=== PATIENT | female | born 1995 | race Caucasian/White ===

== ENCOUNTER 2025-03-29 07:41 | Inpatient (IN) ==
[2025-03-29] MEDS ORDERED: LIDOCAINE 1% LOCAL 20 ML VIAL INFIL PRN (09:25)
--- NOTE | 2025-03-29 09:37 | History & Physical Report ---
Date of Service March 29, 2025 Assessment & Plan (1) Encounter for induction of labor: Plan: Pt is a 29yo at 40w 0d with hx of Pacemaker presenting for induction of labor Routine labs ordered Pitocin ordered Epidural placement on demand Monitor tracing Expectant management for labor, anticipate GBS +, penicillin ordered Admission and Anticipated Discharge Date Admission Date: March 29, 2025 History of Present Illness Chief Complaint: IOL Primary Care Provider: Fifi Cano Pt is a 29yo female currently at 40w 0d with an BANDAR 03/29/25 who is here for induction of labor. Adequate movement; not feeling contractions, no fluid loss; no bloody show PMH: Pacemaker placement 07/2021 AV heart block-sees [facility]ology Concerned about laboring and seizures due to high heart rates Hx ectopic -ruptured tube with removal of Left Had regular appointments with OB. OB Labs: Blood Type O Positive 08/31/24 Antibody Screen NEGATIVE 08/31/24 Hgb 12.3 g/dl (12.0-16.0) 03/12/25 Hct 35.8 % (37.0-47.0) L 03/12/25 MCV 95.2 fL (80.0-100.0) 03/12/25 Plt Count 235 K/uL (130-400) 03/12/25 Rubella IgG Antibody Immune (Immune) 08/31/24 Treponema pallidum Ab Negative (Negative) 01/10/25 Hep Bs Antigen Negative (Negative) 08/31/24 Hepatitis C Antibody Negative (Negative) 08/31/24 HIV 1&2 Ab/P24 Ag 4thGn Negative (Negative) 08/31/24 Glucose 1 Hr 50 gm 108 mg/dl (70-130) 01/10/25 Chlamydia trachomatis RNA Not Detected (NotDetected) 08/31/24 Neisseria gonorrhoeae RNA Not Detected (NotDetected) 08/31/24 Thyroid Stimulating Hormone (TSH) 2.262 uIu/ml (0.300-4.500) 03/12/25 Panorama: Low risk Horizon: Negative Review of Systems : Denies fever, chills, headache, vision changes, shortness of breath, difficulty breathing, chest pain, palpitations, RUQ/epigastric pain, dysuria Allergies Allergy/AdvReac Type Severity Reaction Status Date / Time povidone-iodine Allergy Swelling, Verified 03/28/25 16:24 [From Betadine] rash Home Medications Medication Instructions Recorded Confirmed Type cetirizine 10 mg capsule (Zyrtec) 10 mg PO BID 03/29/25 03/29/25 History famotidine 20 mg tablet (Pepcid) 20 mg PO BID 03/29/25 03/29/25 History vits no.124-ferrous fum 1 tab PO DAILY 03/29/25 03/29/25 History 27 mg iron-folic acid 800 mcg tablet ( Vitamin) Patient History Medical History Chronic urticaria [facility] ER visit, treated with pepcid/benadryl/medrol dosepak Endometriosis Fibromyalgia History of seizure Single seizure, post-op meniscus surgery (2009) No seizure/issues since Intermittent complete heart block Migraine Pacemaker Implanted 2021, Medtronic, Hx intermittent CHB Follows with [facility] EP Perivascular dermatitis Surgical History H/O unilateral salpingectomy left H/O wisdom tooth extraction S/P cardiac pacemaker procedure Implanted 2021 Status post lateral meniscus repair Right Family History Grandfather (Maternal) Diabetes Grandmother (Maternal) Ovarian cancer Aunt Breast cancer Great maternal aunt Denies family history of Colorectal cancer Social History Smoking Status: Never smoker Do You Dip or Chew Tobacco: No; Hx Alcohol Use: No Hx Substance Use: No Preferred Language: [place] Communication Ability: Effective Dancer Or Choreographer Required: No Beliefs That Will Affect Care: None marital status: marital status details: Pavel Victoria (30) [phone] Current Living Situation: Spouse Current Living Situation Comment: lives with spouse, dogs current occupational status: employed current occupation: [email or web address] worker Other Information That Helps Us Care for You: No Feels Safe at Home: Yes Safety Concerns: Feels Safe At This Time Assistive Devices: None Physical Exam Physical Exam: General: patient resting comfortably, NAD, non-toxic in appearance, AAOx4, answers questions appropriately. Skin: warm, dry, intact HEENT: NC/AT, anicteric sclera, conjunctiva without injection Heart: S1/S2 heard, regular, no m/r/g Lungs: equal air entry bilaterally, no rales/rhonchi/wheezes Abd: Normoactive BS, soft, NT/ND, gravid uterus Ext: warm, no clubbing/cyanosis or edema Neuro: nonfocal, speech intact, no facial droop, moving all extremities on c ommand : FHR baseline 130, moderate variability, accelerations present, decelerations absent, no contractions. Category 1 tracing. Results & Data Vital Signs (Past 12 Hours) Vital Signs Temp Pulse Resp BP 03/29/25 08:04 83 119/76 03/29/25 08:00 36.9 C 16 03/29/25 07:53 16 03/29/25 07:53 36.9 C 16 Supervising Physician Co-Signing Physician Notes Resident Physician Supervision Note: I interviewed and examined the patient. Discussed with Dr. Laura and agree with findings and plan as documented in the note. Any exceptions or clarifications are listed here: 29yo who presents at 40w0d for scheduled induction of labor, cervix 1/70/-2. Johnson balloon placed with 35cc fluid - pt tolerated well. FHT reassuring, cxn rare. Will start pitocin 2x2. Epidural PRN. GBS pos- penicillin ordered. RI, Rh pos. Documented By: Bessie Anne MD Resident Activity Tracking Resident Involvement: Resident Care Provided Care Provided: OB Delivery
[2025-03-29 09:54] LABS: Hematocrit (blood only) 34.4 % (37.0-47.0); Hemoglobin 11.9 g/dl (12.0-16.0); Mean Corpuscular Hemoglobin 33.1 pg (25.0-34.0); Mean Corpuscular Volume 95.6 fL (80.0-100.0); Platelet Count 197 K/uL (130-400); RDW Standard Deviation 46.5 fL (36.4-46.3); Red Blood Count 3.60 M/uL (4.20-5.40); White Blood Count 9.22 K/ul (4.8-10.8)
[2025-03-29] MEDS: LACTATED RINGER'S 1,000 ML IV PRN (09:59)
[2025-03-29] MEDS: PENICILLIN GK 6 MU in DEXTROSE 5% 250 ML IV STA (10:04)
[2025-03-29] MEDS: OXYTOCIN 30 UNITS/NSS 30 UNITS/500 ML BAG IV PRN (10:10)
--- NOTE | 2025-03-29 13:10 | Labor Progress Brief Note ---
Date of Service March 29, 2025 Subjective Reason For Note: Routine Evaluation and Requested By RN Feeling a little uncomfortable with jarvis balloon but overall managing well. RN reports heart rate higher up on patient's abdomen so wanted to confirm position. Review of Systems All systems reviewed & are unremarkable except as noted in HPI & below Assessment & Plan (1) Encounter for induction of labor: Plan Fetus confirmed cephalic on BSUS FHT reassuring, toco cxns q 2 min apart Continue pitocin 2x2, hold at 10 while jarvis balloon in place Will AROM once balloon out Epidural PRN Admission and Anticipated Discharge Date Admission Date: March 29, 2025 Physical Exam Physical Exam: BSUS performed - fetus cephalic Results & Data Vital Signs (Past 12 Hours) Vital Signs Temp Pulse Resp BP 03/29/25 12:30 16 03/29/25 12:30 16 03/29/25 11:47 62 120/77 03/29/25 11:00 16 03/29/25 11:00 16 03/29/25 10:51 68 110/57 L 03/29/25 10:30 16 03/29/25 10:30 16 03/29/25 10:00 16 03/29/25 10:00 16 03/29/25 08:04 83 119/76 03/29/25 08:00 36.9 C 16 03/29/25 07:53 16 03/29/25 07:53 36.9 C 16 Coding Level of Care Code None Diagnoses Encounter for induction of labor Z34.90
[2025-03-29] MEDS: PENICILLIN GK 3 MU in DEXTROSE 5% 100 ML IV PRN (14:01)
[2025-03-29] MEDS: BUPIVACAINE 0.25% PF 30 ML VIAL ONE (15:49)
[2025-03-29] MEDS: fentANYL 2 MCG/ML BUPIVacaine 0.125%-NSS 100ML BAG ONE (15:49)
[2025-03-29] MEDS: LIDOCAINE 2%/EPINEPHRINE 1:200,000 20 ML PF ONE (15:49)
[2025-03-29] MEDS: SODIUM CHLORIDE 0.9% PF INJ 10 ML VIAL ONE (15:49)
[2025-03-29] MEDS ORDERED: NALOXONE HCL 0.4 MG/1 ML VIAL/CARP IV PRN (15:57)
[2025-03-29] MEDS ORDERED: NALBUPHINE HCL INJ 10 MG/ML AMP IV PRN (15:57)
[2025-03-29] MEDS ORDERED: NALOXONE HCL 1 MG in SODIUM CHLORIDE 0.9% 1,000 ML IV PRN (15:57)
[2025-03-29] MEDS ORDERED: LIDOCAINE 2% MPF LOCAL 5 ML VIAL EPI PRN (15:57)
[2025-03-29] MEDS ORDERED: diphenhydrAMINE 50 MG/ML VIAL IV PRN (15:57)
[2025-03-29] MEDS ORDERED: ROPIVACAINE 0.5% PF 5 MG/ML 20 ML VIAL EPI PRN (15:57)
[2025-03-29] MEDS ORDERED: PROMETHAZINE 6.25 MG/50.25 ML BAG IV PRN (15:57)
--- NOTE | 2025-03-29 15:58 | Anesthesiology Consultation ---
Date of Service March 29, 2025 Assessment & Plan Chart Review Chart Review: Acceptable Risk for Labor Epidural Consults Requested none ASA ASA3 Proposed Anesthesia Anesthesia Type: Labor Epidural Risk / Benefits Reviewed With: PT / POA / Parent / Guardian, Accepts Plan and Informed Consent Obtained History Height/Weight Height: 5 ft 6 in Weight: 109.955 kg Allergies Allergy/AdvReac Type Severity Reaction Status Date / Time povidone-iodine Allergy Swelling, Verified 03/28/25 16:24 [From Betadine] rash Medications Home Medications Medication Instructions Recorded Confirmed Last Taken cetirizine 10 mg capsule (Zyrtec) 10 mg PO BID 03/29/25 03/29/25 03/29/25 famotidine 20 mg tablet (Pepcid) 20 mg PO BID 03/29/25 03/29/25 03/29/25 omalizumab 300 mg/2 mL 300 mg (2 mL) subcut .every 28 03/29/25 Unknown subcutaneous syringe (Xolair) days #2 mL vits no.124-ferrous fum 1 tab PO DAILY 03/29/25 03/29/25 03/28/25 27 mg iron-folic acid 800 mcg tablet ( Vitamin) Active Medications Generic Name Dose Route Start Last Admin Trade Name Freq PRN Reason Stop Dose Admin Oxytocin 30 units in 500 mls @ 10 mls/hr 03/29/25 09:25 03/29/25 14:00 Pitocin 30 Units/Nss IV 03/31/25 09:24 0.6 units/hr .Q24H PRN 10 mls/hr Labor Induction/Augmentation Titration Protocol 0.6 UNITS/HR Lactated Ringer's 1,000 mls @ 125 mls/hr 03/29/25 09:25 03/29/25 09:59 Lr IV 03/31/25 09:24 125 mls/hr .Q8H PRN Administration L&D Protocol Protocol Penicillin G Potassium 3 mu/ 106 mls @ 100 mls/hr 03/29/25 12:42 03/29/25 14:01 Dextrose IV 04/08/25 12:41 100 mls/hr Q4H PRN Administration GBS(+) Until Delivery Past Medical History Medical History Chronic urticaria [facility] ER visit, treated with pepcid/benadryl/medrol dosepak Endometriosis Fibromyalgia History of seizure Single seizure, post-op meniscus surgery (2009) No seizure/issues since Intermittent complete heart block Migraine Pacemaker Implanted 2021, [employer], Hx intermittent CHB Follows with [facility] EP Perivascular dermatitis Exercise / Class Metabolic Activity II 4-5 Yardwork/Stairs/Walk up hill Past Family History Family History Grandfather (Maternal) Diabetes Grandmother (Maternal) Ovarian cancer Aunt Breast cancer Great maternal aunt Denies family history of Colorectal cancer Past Surgical History Surgical History H/O unilateral salpingectomy left H/O wisdom tooth extraction S/P cardiac pacemaker procedure Implanted 2021 Status post lateral meniscus repair Right Past Anesthesia History No Hx of Anesthesia Complications and No Family Hx of Anesthesia Complications History of PONV No Hx of PONV and No Hx of Motion Sickness Social History Smoking Status: Never smoker Do You Dip or Chew Tobacco: No Hx Alcohol Use: No Hx Substance Use: No substance use type: does not use Physical Exam Vital Signs Last Vital Signs Temp 36.8 C 03/29/25 15:37 Pulse 94 H 03/29/25 15:53 Resp 16 03/29/25 15:37 BP 107/56 L 03/29/25 15:53 Pulse Ox 97 03/29/25 15:51 ENMT Mouth: no dentition abnormality Thyromental Distance: > or= 3.5 Finger Breadths Mallampati Class: II Neck normal visual inspection Respiratory normal respiratory effort Auscultation: lungs clear to auscultation bilaterally Cardiovascular Rate/Rhythm: regular rate and regular rhythm Chest (Breasts) Chest: + pacemaker Psychiatric Orientation: alert Testing Laboratory Results 03/29/25 09:33
--- NOTE | 2025-03-29 16:48 | Labor Progress Brief Note ---
Date of Service March 29, 2025 Subjective Reason For Note: Routine Evaluation Feeling comfortable with epidural Assessment & Plan (1) Encounter for induction of labor: Plan S/P epidural S/P AROM Continue pitocin 2x2 Continue GBS prophylaxis ANnticipat Admission and Anticipated Discharge Date Admission Date: March 29, 2025 Physical Exam Constitutional: WD/WN, vitals as above Psychiatric: Orientation: alert and oriented x 3 Genitourinary: Manual OB Exam: + cervical dilation 5 cm, + cervical effacement 80%, + station -2 and + amniotic fluid meconium (light) OB Exam Monitor Tracing: + external FHT monitor used and + category I AROM performed in normal sterile fashion with cvx exam above. Light meconium fluid noted. Patient tolerated well. Results & Data Vital Signs (Past 12 Hours) Vital Signs Temp Pulse Resp BP Pulse Ox 03/29/25 16:44 76 101/55 L 03/29/25 16:41 79 96 03/29/25 16:36 65 96 03/29/25 16:31 101 H 97 03/29/25 16:26 91 H 98 03/29/25 16:24 96 H 110/57 L 03/29/25 16:21 94 H 98 03/29/25 16:19 88 105/56 L 03/29/25 16:16 85 98 03/29/25 16:13 91 H 97/53 L 03/29/25 16:11 92 H 99 03/29/25 16:10 105 H 107/58 L 93 03/29/25 16:06 101 H 98 03/29/25 16:04 95 H 101/56 L 03/29/25 16:01 95 H 97 03/29/25 16:00 96 H 101/59 L 03/29/25 15:56 96 H 98 03/29/25 15:53 94 H 107/56 L 03/29/25 15:51 97 03/29/25 15:51 90 03/29/25 15:51 91 H 95/51 L 03/29/25 15:49 85 104/63 03/29/25 15:48 78 106/66 03/29/25 15:46 84 99 03/29/25 15:45 87 115/77 03/29/25 15:41 78 97 03/29/25 15:37 16 03/29/25 15:37 36.8 C 16 10/24/25 15:36 80 97 03/29/25 15:35 88 128/82 03/29/25 14:30 16 03/29/25 14:30 16 03/29/25 14:14 74 114/60 03/29/25 14:00 16 03/29/25 14:00 16 03/29/25 13:30 16 03/29/25 13:30 16 03/29/25 13:04 16 03/29/25 13:04 37.0 C 16 03/29/25 12:30 16 03/29/25 12:30 16 03/29/25 11:47 62 120/77 03/29/25 11:00 16 03/29/25 11:00 16 03/29/25 10:51 68 110/57 L 03/29/25 10:30 16 03/29/25 10:30 16 03/29/25 10:00 16 03/29/25 10:00 16 03/29/25 08:04 83 119/76 03/29/25 08:00 36.9 C 16 03/29/25 07:53 16 03/29/25 07:53 36.9 C 16 Coding Level of Care Code None Diagnoses Encounter for induction of labor Z34.90
[2025-03-29] MEDS: BUPIVACAINE 0.25% PF 30 ML VIAL EPI STA (21:31)
[2025-03-29] MEDS: SODIUM CHLORIDE 0.9% PF INJ 10 ML VIAL EPI STA (21:32)
[2025-03-29] MEDS: LIDOCAINE 2%/EPINEPHRINE 1:200,000 20 ML PF EPI STA (21:32)
[2025-03-29] MEDS: ACETAMINOPHEN 325 MG TAB PO PRN (21:47)
[2025-03-29] MEDS: fentANYL 2 MCG/ML BUPIVacaine 0.125%-NSS 100ML BAG EPI PRN (23:46)
[2025-03-30] MEDS: CALCIUM CARBONATE 500 MG CHEWABLE TAB PO PRN (03:09)
[2025-03-30] MEDS: ONDANSETRON INJ 2 MG/ML 2 ML VIAL IV PRN (04:11)
[2025-03-30] MEDS ORDERED: NURSING L&D Epidural Breakthrough Pain Update ONE (04:41)
[2025-03-30] MEDS: SODIUM CHLORIDE 0.9% PF INJ 10 ML VIAL EPI PRN (04:50)
[2025-03-30] MEDS: BUPIVACAINE 0.25% PF 30 ML VIAL EPI PRN (04:50)
[2025-03-30] MEDS: METHYLERGONOVINE MALEATE 0.2 MG/ML AMP ONE (10:58)
[2025-03-30] MEDS: OXYTOCIN 30 UNITS/NSS 30 UNITS/500 ML BAG IV PRN (10:59)
[2025-03-30] MEDS ORDERED: HYDROCORTISONE ACETATE 25 MG SUPP PR PRN (11:12)
[2025-03-30] MEDS ORDERED: OXYTOCIN 30 UNITS/NSS 30 UNITS/500 ML BAG IV PRN (11:12)
--- NOTE | 2025-03-30 11:31 | Delivery Summary ---
Vaginal Delivery Summary Date of Service March 30, 2025 Vaginal Delivery Summary and 1st Degree LAC Patient progressed to 10 cm dilated, 100% effaced, +2 station and pushed over intact perineum with epidural anesthesia and delivered a viable female with weight and Apgars pending. Had the delivered without difficulty quickly followed by shoulders and body. was noted to be vigorous upon delivery and a 1 minute delayed cord clamping was initiated. Cord was then doubly clamped and cut remained on maternal abdomen. Cord blood obtained and attention turned to delivery the placenta was delivered intact with three-vessel cord with gentle cord traction. Inspection perineum vagina and cervix was noted to be a first-degree perineal laceration with left vaginal laceration and left labial laceration. Lacerations were reapproximated with 3-0 Vicryl with continuous running stitch. Patient was given Cytotec and Methergine after delivery of placenta due to lower uterine segment atony and moderate bleeding. Both mother and stable in the immediate postdelivery timeframe. No complications noted and blood loss per QBL in chart [facility] Vaginal Delivery Charge Delivery Type Details: and 1st Degree LAC
--- NOTE | 2025-03-30 11:50 | Anesthesiology Progress Note ---
Date of Service March 30, 2025 Anesthesia Post Procedure Vital Signs Vital Signs: Temp Pulse Resp BP Pulse Ox 03/30/25 11:38 83 127/60 03/30/25 11:23 88 117/58 L 03/30/25 11:10 96 H 124/63 03/30/25 11:09 93 H 87 L 03/30/25 11:08 95 03/30/25 11:08 86 03/30/25 11:08 96 H 121/70 03/30/25 11:03 88 97 03/30/25 10:58 94 H 96 03/30/25 10:56 96 H 122/58 L 03/30/25 10:53 98 H 97 03/30/25 10:48 117 H 94 03/30/25 10:43 114 H 94 03/30/25 10:42 112 H 87 L 03/30/25 10:38 124 H 92 03/30/25 10:33 108 H 76 L 03/30/25 10:28 107 H 93 03/30/25 10:23 106 H 127/67 96 03/30/25 10:18 112 H 96 03/30/25 10:13 111 H 96 03/30/25 10:08 97 03/30/25 10:08 114 H 03/30/25 10:08 116 H 133/82 03/30/25 10:05 20 03/30/25 10:05 36.9 C 20 03/30/25 10:04 115 H 87 L 03/30/25 10:03 111 H 98 03/30/25 09:58 120 H 81 L 03/30/25 09:53 101 H 128/75 94 03/30/25 09:52 101 H 80 L 03/30/25 09:48 98 H 97 03/30/25 09:45 105 H 88 L 03/30/25 09:43 105 H 97 03/30/25 09:38 105 H 97 03/30/25 09:36 97 H 86 L 03/30/25 09:33 85 98 03/30/25 09:28 83 96 03/30/25 09:23 97 03/30/25 09:23 91 H 03/30/25 09:23 88 113/75 03/30/25 09:18 99 H 98 03/30/25 09:13 87 96 03/30/25 09:09 85 107/67 03/30/25 09:08 81 97 03/30/25 09:03 82 95 03/30/25 08:59 20 03/30/25 08:59 20 03/30/25 08:58 85 97 03/30/25 08:53 98 03/30/25 08:53 96 H 03/30/25 08:53 90 110/63 03/30/25 08:47 78 96 03/30/25 08:42 80 96 03/30/25 08:37 77 98 03/30/25 08:32 98 H 98 03/30/25 08:27 93 H 98 03/30/25 08:24 89 139/92 03/30/25 08:22 89 99 03/30/25 08:17 88 98 03/30/25 08:12 90 98 03/30/25 08:09 96 H 144/85 H 03/30/25 08:07 85 97 03/30/25 08:02 84 98 03/30/25 08:01 20 03/30/25 08:01 20 03/30/25 07:57 93 H 98 03/30/25 07:54 87 142/75 H 03/30/25 07:52 86 99 03/30/25 07:47 87 98 03/30/25 07:42 95 H 100 03/30/25 07:39 76 146/84 H 03/30/25 07:37 78 98 03/30/25 07:32 90 98 03/30/25 07:27 88 98 03/30/25 07:24 86 156/69 H 03/30/25 07:22 82 97 03/30/25 07:17 88 97 03/30/25 07:12 90 97 03/30/25 07:08 82 148/72 H 03/30/25 07:07 82 99 03/30/25 07:02 83 99 03/30/25 07:00 18 03/30/25 07:00 18 03/30/25 06:57 87 99 03/30/25 06:53 90 151/80 H 03/30/25 06:52 92 H 98 03/30/25 06:47 89 98 03/30/25 06:42 99 H 99 03/30/25 06:38 90 128/72 03/30/25 06:37 100 H 100 03/30/25 06:32 89 99 03/30/25 06:30 18 03/30/25 06:30 18 03/30/25 06:27 90 99 03/30/25 06:23 90 115/73 03/30/25 06:21 94 H 99 03/30/25 06:16 80 99 03/30/25 06:11 82 97 03/30/25 06:08 82 109/59 L 03/30/25 06:06 72 96 03/30/25 06:01 74 96 03/30/25 06:00 18 03/30/25 06:00 36.7 C 18 03/30/25 05:56 74 96 03/30/25 05:54 75 108/58 L 03/30/25 05:51 73 96 03/30/25 05:46 76 97 03/30/25 05:41 74 96 03/30/25 05:39 73 110/61 03/30/25 05:36 79 95 03/30/25 05:31 72 96 03/30/25 05:30 18 03/30/25 05:30 18 03/30/25 05:26 74 96 03/30/25 05:22 75 107/65 03/30/25 05:21 72 97 03/30/25 05:16 76 97 03/30/25 05:11 72 97 03/30/25 05:08 76 104/63 03/30/25 05:06 76 97 03/30/25 05:01 80 97 03/30/25 05:00 18 03/30/25 05:00 18 03/30/25 04:56 76 97 03/30/25 04:51 76 98 03/30/25 04:49 75 108/66 03/30/25 04:46 73 98 03/30/25 04:41 77 99 03/30/25 04:36 71 100 03/30/25 04:31 76 97 03/30/25 04:28 78 149/92 H 03/30/25 04:26 74 100 03/30/25 04:21 75 99 03/30/25 04:16 83 97 03/30/25 04:11 88 99 03/30/25 04:06 85 99 03/30/25 04:01 77 100 03/30/25 04:00 36.9 C 75 18 136/79 03/30/25 03:56 82 100 03/30/25 03:51 85 99 03/30/25 03:46 80 100 03/30/25 03:41 84 99 03/30/25 03:36 83 100 03/30/25 03:31 91 H 100 03/30/25 03:30 18 03/30/25 03:30 18 03/30/25 03:28 80 127/80 03/30/25 03:26 85 100 03/30/25 03:21 88 97 03/30/25 03:16 83 100 03/30/25 03:11 89 100 03/30/25 03:06 87 100 03/30/25 03:01 71 99 03/30/25 03:00 18 03/30/25 03:00 18 03/30/25 02:59 78 127/80 03/30/25 02:56 76 100 03/30/25 02:51 84 100 03/30/25 02:46 81 99 03/30/25 02:41 89 100 03/30/25 02:36 85 99 03/30/25 02:31 91 H 98 03/30/25 02:30 18 03/30/25 02:30 18 03/30/25 02:28 82 122/84 03/30/25 02:26 89 98 03/30/25 02:21 82 98 03/30/25 02:16 83 98 03/30/25 02:11 81 97 03/30/25 02:06 91 H 97 03/30/25 02:01 82 97 03/30/25 02:00 18 03/30/25 02:00 36.9 C 18 03/30/25 01:59 81 129/77 03/30/25 01:56 86 97 03/30/25 01:51 92 H 98 03/30/25 01:46 92 H 97 03/30/25 01:41 83 96 03/30/25 01:36 81 97 03/30/25 01:31 90 96 03/30/25 01:30 18 03/30/25 01:30 18 03/30/25 01:28 90 113/74 03/30/25 01:26 79 97 03/30/25 01:21 82 98 03/30/25 01:16 79 97 03/30/25 01:11 82 96 03/30/25 01:06 75 96 03/30/25 01:01 73 96 03/30/25 01:00 18 03/30/25 01:00 18 03/30/25 00:59 77 109/58 L 03/30/25 00:56 80 97 03/30/25 00:51 80 96 03/30/25 00:46 84 96 03/30/25 00:41 74 96 03/30/25 00:36 73 96 03/30/25 00:31 70 96 03/30/25 00:28 79 102/63 03/30/25 00:26 72 96 03/30/25 00:21 70 96 03/30/25 00:16 81 97 03/30/25 00:11 80 97 03/30/25 00:06 84 95 03/30/25 00:01 98 H 97 03/30/25 00:00 18 03/30/25 00:00 18 03/29/25 23:58 96 H 111/67 03/29/25 23:56 86 97 03/29/25 23:51 86 97 03/29/25 23:46 87 97 03/29/25 23:41 89 97 03/29/25 23:36 80 97 03/29/25 23:31 89 98 03/29/25 23:30 18 03/29/25 23:30 36.9 C 18 03/29/25 23:29 82 139/89 03/29/25 23:26 89 98 03/29/25 23:21 80 99 03/29/25 23:16 97 H 97 03/29/25 23:11 90 98 03/29/25 23:06 94 H 98 03/29/25 23:01 94 H 98 03/29/25 23:00 18 03/29/25 23:00 18 03/29/25 22:58 90 143/83 H 03/29/25 22:56 103 H 97 03/29/25 22:51 85 96 03/29/25 22:46 83 96 03/29/25 22:41 86 96 03/29/25 22:36 95 H 96 03/29/25 22:31 86 96 03/29/25 22:30 18 03/29/25 22:30 18 03/29/25 22:28 94 H 144/82 H 03/29/25 22:26 96 H 97 03/29/25 22:21 90 98 03/29/25 22:16 95 H 97 03/29/25 22:11 94 H 97 03/29/25 22:06 93 H 98 03/29/25 22:01 92 H 99 03/29/25 22:00 18 03/29/25 22:00 18 03/29/25 21:59 90 138/78 03/29/25 21:56 92 H 98 03/29/25 21:51 101 H 98 03/29/25 21:46 91 H 98 03/29/25 21:41 90 98 03/29/25 21:36 95 H 99 03/29/25 21:31 86 99 03/29/25 21:30 18 03/29/25 21:30 18 03/29/25 21:28 89 140/79 03/29/25 21:26 99 H 98 03/29/25 21:21 88 98 03/29/25 21:16 82 99 03/29/25 21:11 82 98 03/29/25 21:06 87 98 03/29/25 21:01 86 97 03/29/25 21:00 18 03/29/25 21:00 36.7 C 18 03/29/25 20:56 81 97 03/29/25 20:51 77 96 03/29/25 20:46 98 03/29/25 20:46 80 03/29/25 20:46 78 128/72 03/29/25 20:41 75 98 03/29/25 20:36 72 98 03/29/25 20:31 83 98 03/29/25 20:30 18 03/29/25 20:30 18 03/29/25 20:29 92 H 123/73 03/29/25 20:26 77 96 03/29/25 20:21 80 98 03/29/25 20:16 75 98 03/29/25 20:15 76 123/79 03/29/25 20:11 76 98 03/29/25 20:06 83 98 03/29/25 20:01 79 97 03/29/25 20:00 18 03/29/25 20:00 18 03/29/25 19:56 85 98 03/29/25 19:51 77 97 03/29/25 19:46 83 98 03/29/25 19:45 75 134/70 03/29/25 19:41 93 H 96 03/29/25 19:36 81 97 03/29/25 19:31 84 99 03/29/25 19:30 36.7 C 78 18 136/84 03/29/25 19:26 78 98 03/29/25 19:21 87 97 03/29/25 19:16 77 97 03/29/25 19:14 74 118/74 03/29/25 19:11 78 97 03/29/25 19:06 85 97 03/29/25 19:01 93 H 96 03/29/25 19:00 18 03/29/25 19:00 18 03/29/25 18:56 79 96 03/29/25 18:51 79 96 03/29/25 18:46 70 96 03/29/25 18:45 77 136/75 03/29/25 18:41 76 97 03/29/25 18:36 85 97 03/29/25 18:31 78 95 03/29/25 18:30 16 03/29/25 18:30 16 03/29/25 18:26 89 97 03/29/25 18:21 90 97 03/29/25 18:16 82 97 03/29/25 18:14 85 115/71 93 03/29/25 18:11 91 H 97 03/29/25 18:06 101 H 98 03/29/25 18:01 80 98 03/29/25 18:00 16 03/29/25 18:00 16 03/29/25 17:59 82 117/75 03/29/25 17:56 85 98 03/29/25 17:51 76 98 03/29/25 17:46 85 97 03/29/25 17:44 87 130/67 03/29/25 17:41 82 99 03/29/25 17:36 104 H 97 03/29/25 17:31 85 98 03/29/25 17:30 37.0 C 99 H 16 125/76 03/29/25 17:26 101 H 99 03/29/25 17:21 88 99 03/29/25 17:16 103 H 99 03/29/25 17:14 98/55 L 03/29/25 17:11 77 98 03/29/25 17:06 77 96 03/29/25 17:01 75 95 03/29/25 17:00 16 03/29/25 17:00 16 03/29/25 16:59 72 97/53 L 03/29/25 16:56 82 96 03/29/25 16:51 88 97 03/29/25 16:46 80 97 03/29/25 16:44 76 101/55 L 03/29/25 16:41 79 96 03/29/25 16:36 65 96 03/29/25 16:31 101 H 97 03/29/25 16:26 91 H 98 03/29/25 16:24 96 H 110/57 L 03/29/25 16:21 94 H 98 03/29/25 16:19 88 105/56 L 03/29/25 16:16 85 98 03/29/25 16:13 91 H 97/53 L 03/29/25 16:11 92 H 99 03/29/25 16:10 105 H 107/58 L 93 03/29/25 16:06 101 H 98 03/29/25 16:04 95 H 101/56 L 03/29/25 16:01 95 H 97 03/29/25 16:00 96 H 101/59 L 03/29/25 15:56 96 H 98 03/29/25 15:53 94 H 107/56 L 03/29/25 15:51 97 03/29/25 15:51 90 03/29/25 15:51 91 H 95/51 L 03/29/25 15:49 85 104/63 03/29/25 15:48 78 106/66 03/29/25 15:46 84 99 03/29/25 15:45 87 115/77 03/29/25 15:41 78 97 03/29/25 15:37 16 03/29/25 15:37 36.8 C 16 03/29/25 15:36 80 97 03/29/25 15:35 88 128/82 03/29/25 14:30 16 03/29/25 14:30 16 03/29/25 14:14 74 114/60 03/29/25 14:00 16 03/29/25 14:00 16 03/29/25 13:30 16 03/29/25 13:30 16 03/29/25 13:04 16 03/29/25 13:04 37.0 C 16 03/29/25 12:30 16 03/29/25 12:30 16 Pain Intensity Lower Abdomen: Pain Intensity: 2 Transfer of Care Handoff Completed per policy Notes Mental Status: alert / awake / arousable Patient Amnestic to Procedure: Yes Nausea / Vomiting: adequately controlled Pain: adequately controlled Airway Patency, RR, SpO2: stable & adequate BP & HR: stable & adequate Hydration State: stable & adequate Anesthetic Complications: no major complications apparent
[2025-03-30] MEDS: IBUPROFEN 600 MG TAB PO PRN (12:16)
[2025-03-30] MEDS: METHYLERGONOVINE MALEATE 0.2 MG/ML AMP IM ONE (17:15)
[2025-03-30] MEDS: BENZOCAINE 20% SPRY 85 APPLN/85 GM CAN EXT PRN (17:24)
[2025-03-30] MEDS: ACETAMINOPHEN 325 MG TAB PO PRN (20:47)
[2025-03-30] MEDS: DOCUSATE SODIUM 100 MG CAP PO SCH (20:47)
[2025-03-30] MEDS: DIPHTHER/TETAN/PERTUS Vaccine (Tdap, Adol/Adult) 0.5mL IM ONE (21:06)
[2025-03-31 07:23] LABS: Hemoglobin 11.4 g/dl (12.0-16.0)
[2025-03-31 07:24] LABS: Hematocrit (blood only) 32.5 % (37.0-47.0)
[2025-03-31] MEDS: FERROUS SULFATE 325 MG TAB PO SCH (07:51)
[2025-03-31] MEDS: PRENATAL VITAMIN 1 TAB PO SCH (07:51)
--- NOTE | 2025-03-31 08:54 | Obstetrical Progress Note ---
Date of Service March 31, 2025 Assessment & Plan (1) Encounter for care and examination after delivery: Day 1 status post vaginal delivery. Patient doing well and will continue with routine care. Subjective Ambulation: ambulating normally Voiding: no voiding problems Passing Gas:: Yes Diet Tolerance:: regular diet Lochia:: Moderate Physical Exam Constitutional WD/WN, vitals as above Respiratory normal respiratory effort; no respiratory distress and no labored breathing Cardiovascular Extremities: no calf tenderness Gastrointestinal (Abdomen) Inspection/Auscultation: abdomen normal to inspection; abdomen not distended Percussion/Palpation: abdomen soft; abdomen nontender, no guarding and abdomen not rigid Genitourinary OB Exam Abdomen: + fundal height Fundus: + firm and + relation to umbilicus (Below); not tender or not boggy Results & Data Vital Signs (Past 12 Hours) Vital Signs Temp Pulse Resp BP Pulse Ox O2 Del Method 03/31/25 07:55 36.5 C 77 16 121/82 99 Room Air 03/31/25 07:55 Room Air 03/31/25 03:39 36.5 C 81 16 122/78 Room Air 03/30/25 23:15 36.5 C 69 18 107/73 Room Air
[2025-04-01 00:54] VITALS: O2SAT 98
--- NOTE | 2025-04-01 07:28 | Obstetrical Progress Note ---
Date of Service April 01, 2025 Assessment & Plan (1) Encounter for care and examination after delivery: Day 2 status post vaginal delivery. Patient doing well. Stable for discharge Subjective Ambulation: ambulating normally Voiding: no voiding problems Passing Gas:: Yes Diet Tolerance:: regular diet Lochia:: Moderate Physical Exam Constitutional WD/WN, vitals as above Respiratory normal respiratory effort; no respiratory distress and no labored breathing Cardiovascular Extremities: no calf tenderness Gastrointestinal (Abdomen) Inspection/Auscultation: abdomen normal to inspection; abdomen not distended Percussion/Palpation: abdomen soft; abdomen nontender, no guarding and abdomen not rigid Genitourinary OB Exam Abdomen: + fundal height Fundus: + firm and + relation to umbilicus (Below); not tender or not boggy Results & Data Vital Signs (Past 12 Hours) Vital Signs Temp Pulse Resp BP Pulse Ox O2 Del Method 04/01/25 00:52 36.7 C 74 18 128/87 98 Room Air 03/31/25 20:02 36.4 C L 80 18 132/86 99 Room Air
[2025-04-01 08:33] VITALS: BP 125/82; PULSE 77; RESP 17; TEMP 97.5
== END 2025-04-01 13:15 | disposition home or self-care (01) | DRG 807 ==
LOC: 4S1 07:41 → 4E2 03-30 15:31